=== PATIENT | female | born 1980 | race Caucasian/White ===

== ENCOUNTER 2021-08-07 11:56 | Emergency (ER) | payer BC, OTHER ==
[~2021-08-07] VITALS: Ht 172.7 cm; Wt 81.2 kg
[~2021-08-07 11:56] MED LIST: ACTOS; GLIMEPIRIDE; KAPIDEX; LAMICTAL; LEXAPRO; TOPAMAX; VYTORIN
[2021-08-07 12:33] LABS: BASOPHILS # (AUTO) 0.1 (0.0-0.1); BASOPHILS % 0.7 % (0.0-1.0); EOSINOPHILS # (AUTO) 0.2 (0.0-0.4); EOSINOPHILS % 2.9 % (0.0-6.0); HEMATOCRIT 33.8 % (34.2-44.1); HEMOGLOBIN 10.5 g/dL (12.0-16.0); LYMPHOCYTES # (AUTO) 1.3 (1.0-3.2); MEAN CORPUSCULAR HEMOGLOBIN 24.7 pg (28-32); MEAN CORPUSCULAR HGB CONC 31.1 g/dL (31-35); MEAN CORPUSCULAR VOLUME 79.5 fL (81-99); MONOCYTES # (AUTO) 0.6 (0.2-0.8); MONOCYTES % 6.9 % (4.4-11.3); NEUTROPHILS % 72.8 % (38.7-80.0); PLATELET COUNT 170 x10e3/uL (140-360); RED BLOOD COUNT 4.25 x10e6/uL (3.6-5.1); RED CELL DISTRIBUTION WIDTH 14.7 % (11.7-14.4)
[2021-08-07 12:50] LABS: ANION GAP 15.9 mmol/L (8-16); CALCIUM 9.7 mg/dL (8.4-10.2); CREATININE, SERUM 1.1 mg/dL (0.57-1.11); POTASSIUM 3.9 mmol/L (3.5-5.1)
[2021-08-07] MEDS ORDERED: SODIUM CHLORIDE 0.9% 250ML 250 ML IV ONE (13:00)
[2021-08-07] MEDS ORDERED: IOPAMIDOL 370 MG/ML 100 ML INFUS..BTL INJ ONE (13:09)
[2021-08-07 14:57] VITALS: BP 151/77
== END 2021-08-07 14:58 | disposition home or self-care (01) ==
LOC: ER 12:03
DX: H57.04 Mydriasis (principal); Z98.84 Bariatric surgery status
CPT/HCPCS: 36415; 70496; 70498; 80048; 85025; 99284; J7050; Q9967

== ENCOUNTER → 2021-11-18 | Outpatient (CLI) | payer BC ==
[~2021-11-18] MED LIST changes: +IOPAMIDOL 300 MG/ML 15ML VIAL IT ONE; +LIDOCAINE HCL 1% LOCAL INJ 20 ML VIAL ONE
[2021-11-18 10:31] LABS: HEMOGLOBIN 12.8 g/dL (12.0-16.0)
[2021-11-18 10:46] LABS: INR 0.88; PROTHROMBIN TIME 12.8 seconds (11.9-14.5)
[2021-11-18 10:47] LABS: PARTIAL THROMBOPLASTIN TIME 35.4 seconds (23.8-35.5)
== END ==
LOC: DX 10:03
PROVIDERS: ATTEND Family Medicine
DX: M54.16 Radiculopathy, lumbar region (principal)
CPT/HCPCS: 36415; 62304; 72132; 77003; 81025; 85014; 85049; 85610; 85730; J2001; Q9967